=== PATIENT | male | born 1995 | race African-American/Black ===

== ENCOUNTER 2019-04-14 00:31 | Emergency (ER) | payer SELFPAY ==
[~2019-04-14] VITALS: Ht 177.8 cm; Wt 80.2 kg
[~2019-04-14 00:31] MED LIST: CYCL10TA7 PO; IBUP800T48 PO
[2019-04-14 00:39] VITALS: Ht 177.8 cm; Wt 80.2 kg
[2019-04-14] MEDS ORDERED: ONDANSETRON (ODT) 4 MG TAB ODT STA (01:24)
[2019-04-14] MEDS ORDERED: HYDROCODONE/APAP (10/325) TAB PO ONE (01:30)
[2019-04-14 04:07] VITALS: BP 139/87; PULSE 55; RESP 18
== END 2019-04-14 04:08 | disposition home or self-care (01) ==
LOC: FTE 00:31
DX: S06.0X0A Concussion without loss of consciousness, initial encounter (principal); S16.1XXA Strain of muscle, fascia and tendon at neck level, initial encounter; S20.219A Contusion of unspecified front wall of thorax, initial encounter; V43.52XA Car driver injured in collision with other type car in traffic accident, initial encounter
CPT/HCPCS: 70450; 71046; 72125